=== PATIENT | female | born 1985 | race Caucasian/White ===

== ENCOUNTER 2019-03-04 21:03 | Emergency (ER) | payer MEDICAID ==
[~2019-03-04] VITALS: Ht 157.5 cm; Wt 91.2 kg
[2019-03-04 21:05] VITALS: Ht 157.5 cm; Wt 91.2 kg
[2019-03-04 23:21] VITALS: BP 156/80
== END 2019-03-04 23:21 | disposition home or self-care (01) ==
LOC: ED 21:03
DX: S93.401A Sprain of unspecified ligament of right ankle, initial encounter (principal); W10.9XXA Fall (on) (from) unspecified stairs and steps, initial encounter; Y93.89 Activity, other specified; Y92.89 Other specified places as the place of occurrence of the external cause; Y99.8 Other external cause status

== ENCOUNTER 2019-04-06 06:43 | Emergency (ER) | payer MEDICAID ==
[~2019-04-06] VITALS: Ht 157.5 cm; Wt 92.1 kg
[2019-04-06 06:48] VITALS: BP 154/99; Ht 157.5 cm; Wt 92.1 kg
== END 2019-04-06 07:24 | disposition home or self-care (01) ==
LOC: ED 06:43
DX: H00.015 Hordeolum externum left lower eyelid (principal)